=== PATIENT | male | born 1965 | race Caucasian/White ===

== ENCOUNTER 2020-04-03 13:18 | Outpatient (CLI) | payer OTHER, SELFPAY ==
--- NOTE | ~2020-04-03 | US_ITS ---
EXAMINATION: US soft tissue pelvic DATE: 04/03/2020 14:38 INDICATION: Recurrent inguinal hernia with bilateral groin lumps. TECHNIQUE: Multiple grayscale and Doppler ultrasound images of the region of concern in the left and right inguinal regions were obtained. COMPARISON: CT dated 01/20/2013 FINDINGS: At the right sided region of concern there is subtle shadowing along the anterior, lateral and deep m argin couple loops of peristalsing bowel which likely represents mesh and associated metallic clips r elated to a reported prior inguinal hernia repair. Utilizing the landmarks of the external iliac, com mon femoral vessels and inferior epigastric vessels as well as the contour of the bones is a referenc e correlating with prior CT this appears to be located cephalad to the to the inguinal canal. No evid ent recurrent hernia at the more caudal inguinal canal. Similar findings are seen in the region of co ncern on the left where several loops of peristalsing bowel is seen posterior to the region of the me sh repair also cephalad to the region of the inguinal canal. No evident hernia in the region of the o rifice of the left inguinal canal which is incompletely visualized. Is more comprehensive assessment of the inguinal canals and integrity of the hernia repair is clinically indicated would recommend CT for further evaluation. IMPRESSION: 1. No evident recurrent inguinal hernias on either the left or right. Reviewed, dictated and finalized at location A.
== END 2020-04-03 13:19 | disposition home or self-care (01) ==
LOC: CHSIMG 13:24
PROVIDERS: PCP Family Medicine; Visit Provider Family Medicine
DX: K40.91 Unilateral inguinal hernia, without obstruction or gangrene, recurrent (principal)
CPT/HCPCS: 76857

== ENCOUNTER 2020-07-13 11:26 | Outpatient (CLI) | payer OTHER, SELFPAY ==
--- NOTE | ~2020-07-13 | XR_ITS ---
EXAMINATION: XR shoulder LT min 2V DATE: 07/13/2020 11:54 INDICATION: Left shoulder pain. TECHNIQUE: 5 views of left shoulder were obtained. COMPARISON: None. FINDINGS: Bone alignment is normal. No fracture. There is mild osteoarthritis of glenohumeral joint a nd moderate osteoarthritis of acromioclavicular joint There are changes of anterior fusion procedure in cervical spine. IMPRESSION: 1. Polyarticular osteoarthritis. Reviewed, dictated and finalized at location A. 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
== END 2020-07-13 11:27 | disposition home or self-care (01) ==
PROVIDERS: PCP Family Medicine; Visit Provider Family Medicine
DX: M25.512 Pain in left shoulder (principal)
CPT/HCPCS: 73030

== ENCOUNTER 2020-12-25 09:36 | Outpatient (CLI) | payer OTHER, SELFPAY ==
--- NOTE | ~2020-12-25 | XR_ITS ---
EXAMINATION: XR tibia fibula LT 2V EXAM DATE: 12/25/2020 09:56 INDICATION: Contusion of left lat prox lower leg x2mo, pain. TECHNIQUE: Left tibia/fibula frontal and lateral projections obtained and reviewed. There is no prio r study for comparison. FINDINGS: Left tibial and fibular shafts unremarkable. There are no acute fractures or dislocations identified. There is no subcutaneous gas. The soft tissue is unremarkable. There are no radiopaqu e foreign bodies. IMPRESSION: 1. Unremarkable left tibia-fibula exam. Reviewed, dictated and finalized at location A.
== END 2020-12-25 09:37 | disposition home or self-care (01) ==
LOC: CHSIMG 09:38
PROVIDERS: PCP Family Medicine; Visit Provider Family Medicine
DX: S80.12XA Contusion of left lower leg, initial encounter (principal)
CPT/HCPCS: 73590

== ENCOUNTER 2021-08-21 12:00 | Outpatient (CLI) | payer OTHER, SELFPAY ==
--- NOTE | ~2021-08-21 | XR_ITS ---
EXAMINATION: XR lumbar spine 2-3V DATE: 08/21/2021 12:21 INDICATION: Low back pain. TECHNIQUE: 3 views of lumbar spine were obtained. COMPARISON: None. FINDINGS: There is 3 degrees dextrocurvature of lumbar spine. There is mild chronic anterior wedging of T12 vertebral body. Intervertebral disc heights are normal. There are endplate osteophytes at most levels. There is multilevel mild to moderate facet joint osteoarthritis. Surgical clips overlie left pelvis. IMPRESSION: 1. Mild lumbar spondylosis. Reviewed, dictated and finalized at location A. 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 Mild lumbar spondylosis.
--- NOTE | ~2021-08-21 | XR_ITS ---
EXAMINATION: XR chest 2V 08/21/2021 12:21 INDICATION: Shortness of breath. Recent exposure to black mold. PROCEDURE: 2 view chest COMPARISON: 09/01/2015 FINDINGS: The lungs are clear. The cardiomediastinal silhouette is within normal limits. There are no pleural effusions. There is no pneumothorax suspected. IMPRESSION: 1: NO ACUTE CARDIOPULMONARY DISEASE. Reviewed, dictated and finalized at location A. P SAWYER
== END 2021-08-21 12:01 | disposition home or self-care (01) ==
LOC: CHSIMG 12:02
PROVIDERS: PCP Family Medicine; Visit Provider Family Medicine
DX: R06.02 Shortness of breath (principal); M54.50 Low back pain, unspecified
CPT/HCPCS: 71046; 72100

== ENCOUNTER 2025-04-21 09:28 | Outpatient (CLI) | payer MEDICARE, SELFPAY ==
--- NOTE | ~2025-04-21 | XR_ITS ---
XR hand RT min 3V 04/21/2025 09:56 Indication: Right hand and wrist pain Procedure: 3 views right hand and 4 views right wrist Comparison: No prior studies for comparison. Findings: There is mild polyarticular osteoarthritis including the interphalangeal joints and triscaphe and first carpal metacarpal joints. No acute fracture, subluxation or dislocation. No focal soft tissue abnormality. Impression: 1: Mild polyarticular osteoarthritis. Reviewed, dictated and finalized at location O. Impression: 1: Mild polyarticular osteoarthritis.
--- NOTE | ~2025-04-21 | XR_ITS ---
XR wrist LT min 3V 04/21/2025 09:56 Indication: Left wrist pain Procedure: 4 views left wrist Comparison: No prior studies for comparison. Findings: There is mild osteoarthritis of the triscaphe and first carpal metacarpal joints. No fracture, subluxation or dislocation. No foreign bodies. Impression: 1: Mild polyarticular osteoarthritis. Reviewed, dictated and finalized at location O. Impression: 1: Mild polyarticular osteoarthritis.
--- NOTE | ~2025-04-21 | XR_ITS ---
XR wrist RT min 3V 04/21/2025 09:56 Indication: Right wrist pain Procedure: 4 views right wrist Comparison: No prior studies for comparison. Findings: There is mild polyarticular osteoarthritis of the triscaphe and first carpal metacarpal joints. No fracture, subluxation or dislocation. No focal soft tissue abnormality. No foreign bodies. Impression: 1: Mild polyarticular osteoarthritis of the right wrist. Reviewed, dictated and finalized at location O. Impression: 1: Mild polyarticular osteoarthritis of the right wrist.
--- NOTE | ~2025-04-21 | XR_ITS ---
XR hand LT min 3V 04/21/2025 09:56 Indication: Left hand pain Procedure: 3 views left hand Comparison: 04/21/2025 Findings: There is mild polyarticular osteoarthritis of the first digit. No fracture, subluxation or dislocation. No focal soft tissue abnormality. No foreign body. Impression: 1: Mild polyarticular osteoarthritis of the first finger. Reviewed, dictated and finalized at location O. Impression: 1: Mild polyarticular osteoarthritis of the first finger.
--- OUTSIDE RECORDS SUMMARY | 2025-04-21 09:35 | XMS_ITS | Clinical Summary ---
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 Active propafenone (RYTHMOL) 225 mg Tablet every 8 hours. Active valACYclovir (VALTREX) 1 gram tablet TK 1 T PO BID FOR 7 DAYS 02/22/2019 Active Active Problems Patient Care Coordination No te Formatting of this note migh t be different from the original. DATA CONVERSION DEVELOPER DR GRAY SEGAL MD, [facility], [facility] Problem Noted Date Diagnosed Date Anemia 01/15/2022 Iron deficiency anemia 01/07/2022 Gastroesophageal reflux disease 04/29/2019 Altered bowel function 04/29/2019 Abdominal hernia 04/29/2019 Tobacco use 02/02/2017 Right inguinal hernia 01/20/2012 Encounters Date Type Department Care Team Description 04/18/2025 External Device Data ST[facility] ABSTRACTION Provider, Abstract 03/15/2025 External Device Data [facility] ABSTRACTION Provider, Abstract 02/15/2025 External Device Data [facility] ABSTRACTION Provider, Abstract from Last 3 Months Immunizations Immunization Administration Dates Next Due ([facility])(7 YRS UP) TETANUS AND DIPHTHERIA TOXOIDS, ADSORBED (5 LF OF TETANUS TOXOID AND 2 LF OF DIPHTHERIA TOXOID), 0.5ML (PF), IM 02/02/2017 Family History Medical History Relation Name Comments Cancer Father Benigno Mccarthy Heart Disease Maternal Grandfather Prieto Mccarthy Diabetes Maternal Grandmother Lilly Mccarthy Healthy Mother Relation Name Status Comments Father Benigno Mccarthy Maternal Grandfather Prieto Mccarthy Maternal Grandmother Lilly Mccarthy Mother Alive Social History Tobacco Use Types Packs/Day Years Used Date Smoking Tobacco: Former Cigarettes Smokeless Tobacco: Current Chew Comments:Stopped smoking and switched to vaping 5 years ago. 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 Oxygen Saturation 97% 03/09/2023 11:12 AM CDT Inhaled Oxygen Concentration - - Weight 57.9 kg (127 lb 9.6 oz) 03/09/2023 11:12 AM CDT Height 172.7 cm (5' 8) 03/09/2023 11:12 AM CDT Body Mass Index 19.4 03/09/2023 11:12 AM CDT Plan of Treatment Upcoming Encounters Date Type Department Care Team (Late st Contact Info) Description 05/08/2025 10:30 AM CDT Office Visit [facility] Neurology [address] [facility] [address] [place] [address] Viktor Jack MD [address] [facility] [place] [address] Health Maintenance Due Date Last Done Comments COLORECTAL SCREENING 2009 Colorectal Cancer Screening 2009 FIT-DNA Q 3 years 2009 FIT/FOBT Q 1 year 2009 Flex Sig/CT Colonography Q 5 years 2009 ZOSTER VACCINE (1 of 2) 2014 INFLUENZA VACCINE (#1) 2025 5, 08/26/2012, 07/31/2011 DTAP/TDAP/TD VACCINES (3 - T d or Tdap) 02/02/2027 02/02/2017, 09/15/2013 RSV VACCINE (60+ or ) (1 - 1-dose 75+ series) 11/27/2039 HEPATITIS B VACCINES Aged Out No long er eligible based on patient's age to complete this topic Insurance [employer]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
--- OUTSIDE RECORDS SUMMARY | 2025-04-21 09:35 | XMS_ITS | Encounter Summary ---
Author Organization [facility] Address [address] [place] [address] Care Team Providers Care Digital Marketing Intern Name Role Phone Hernesto Carpio MD Primary Care Provide r Encounter Details Date Type Department Care Team (Late st Contact Info) Description 02/28/2020 Telephone [facility] Imaging [id number] [place] [id number] [address] Seth RT Social History Tobacco Use Types Packs/Day Years Used Date Smoking Tobacco: Every Day Comments:vaping Alcohol Use Standard Drinks/Week Comments Yes 0 (1 standard drink = 0.6 oz pur e alcohol) Sex and Gender Information Value Date Recorded Sex Assigned at Not on file 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
--- OUTSIDE RECORDS SUMMARY | 2025-04-21 09:35 | XMS_ITS | Clinical Summary ---
Author Organization [facility] Address [address] [place] [address] Care Team Providers Care Airfreight Operations Agent Name Role Phone Hernesto Carpio MD Primary Care Provide r Allergies Active Allergy Reactions Criticality Noted Date Comments Codeine Nausea only,Vomiting,Other (See comments) Reaction: Nausea, Vomiting, Muscle Spasm, Propoxyphene-Acetaminop hen Hives Medium 05/10/2019 Ketorolac Other (See comments) Low 05/10/2019 Morphine Rash Reaction: Rash, Tramadol Hives Medium 05/24/2016 Azithromycin Vomiting Low 05/10/2019 Medications valACYclovir (VALTREX) 1 gram tablet TK 1 T PO BID FOR 7 DAYS 0 9 Active propafenone (RYTHMOL) 225 mg tablet every [address] (NexIUM) 20 mg capsule Take 20 mg by mouth daily before breakfast Active levoFLOXacin (LEVAQUIN) 500 mg tablet TK 1 T PO Q 24 H FOR 10 DAYS 9 Active diazePAM (VALIUM) 5 mg tabletIndicatio ns:anxiety,Angeline tion Take 1 tablet(5mg) 1hr prior to procedure. Take 1 tablet 30min before procedure. May repeat once directly before procedure if needed 3 tablet 0 Active Additional Information Patient not taking.Reported on 01/15/2022 oxyCODONE (ROXICODONE) 10 mg tabletIndicatio ns:Pain Take 10 mg by mouth every 4 (four) hours as needed for pain Active oxyCODONE-aceta minophen (PERCOCET) 7.5-325 mg per tabletIndicatio ns:Pain Take 1 tablet by mouth every 4 (four) hours as needed for pain 15 tablet 0 Active Additional Information Patient not taking.Reported on 01/15/2022 HYDROcodone-william taminophen (NORCO) 7.5-325 mg per tabletIndicatio ns:Pain Take 6 tablets by mouth daily Takes whole tablets during day, wakes up twice at night to take 1/2 tablet each time. Active Active Problems Problem Noted Date Diagnosed Date Anemia 01/15/2022 Abdominal hernia 04/29/2019 Altered bowel function 04/29/2019 Gastroesophageal reflux disease 04/29/2019 Tobacco use 02/02/2017 Right inguinal hernia 01/20/2012 Immunizations Immunization Administration Dates Next Due Influenza, Trivalent, IM (MDV) 08/26/2012,2010 Influenza, Trivalent, Preservative Free, Intramu scular 05/16/2015 TD Preservative Free 02/02/2017 Tdap 09/15/2013 Surgical History Surgery Date Site/Laterality Comments HERNIA REPAIR SPINAL FUSION ROTATOR CUFF REPAIR Medical History Medical History Date Comments Anxiety Arthritis Atrial fibrillation (HCC) Depression Gastric reflux Pneumonia Neck pain Anemia Family History Medical History Relation Name Comments Alcohol abuse Father Arthritis Father Cancer Father Diabetes Father Arthritis Mother Mental illness Mother Relation Name Status Comments Father Mother Social History Tobacco Use Types Packs/Day Years Used Date Smoking Tobacco: Former Smokeless Tobacco: Never Comments:vaping Alcohol Use Standard Drinks/Week Comments Yes 0 (1 standard drink = 0.6 oz pur e alcohol) socially AUDIT-C Answer Date Recorded Q1: How often do you have a drink containing alc ohol? 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 Gender Identity Not on file Sexual Orientation Straight 03/05/2020 8: 14 AM CDT Obstetrics History Last Filed Vital Signs Vital Sign Reading Time Taken Comments Blood Pressure 138/81 01/15/2022 8:42 AM CDT Pulse 97 01/15/2022 8:42 AM CDT Temperature 36.5 C (97.7 F) 01/15/2022 8:42 AM CDT Respiratory Rate 16 01/15/2022 8:42 AM CDT Oxygen Saturation 98% 01/15/2022 8:42 AM CDT Inhaled Oxygen Concentration - - Weight 59 kg (130 lb) 01/15/2022 8:42 AM CDT Height 172.7 cm (5' 8) 01/15/2022 8:42 AM CDT Body Mass Index 19.77 01/15/2022 8:42 AM CDT Plan of Treatment Not on file Goals Goal Patient Goal Type Associated Problems Recent Progress Patient-Stated? Author CCM Chronic Pain Care Plan Chronic Care Management Rossana Ash RN Note: Problem: Chronic Pain Goals: 1. Minimize further functional decline 2. Maximize quality of life 3. Control pain Strategies: - Activity/exercise program recommendation - Conservative stepwise pain medicine strategy with multi-disciplinary approach - Recommend healthy lifestyle strategies and compensatory methods as needed Medical Devices Implanted Type Area Bdr Device Identifier Shelf Expiration Date Model / Serial / Lot C Spine Fusion Spine Cervical Right Shoulder Hardware Shoulder Insurance MEDICARE 1966 [id number] [id number] Care Teams Airfreight Operations Agent Relationship Specialty Start Date End Date Hernesto Carpio MD [address] [place] [address] PCP - General Family Medicine 04/21/19
== END 2025-04-21 09:29 | disposition home or self-care (01) ==
PROVIDERS: PCP Family Medicine; Visit Provider Family Medicine
DX: M79.672 Pain in left foot (principal); M25.532 Pain in left wrist; M79.641 Pain in right hand; M25.531 Pain in right wrist; M15.9 Polyosteoarthritis, unspecified
CPT/HCPCS: 73110; 73130